=== PATIENT | male | born 1995 | race Caucasian/White ===

== ENCOUNTER 2021-02-18 01:18 | Outpatient (CLI) | payer SELFPAY | END 2021-02-18 01:19 | disposition EMS.NT | LOC: EMS 01:18 | DX: R00.2 Palpitations (principal); R00.0 Tachycardia, unspecified ==

== ENCOUNTER 2022-09-23 14:27 | Emergency (ER) | payer OTHER ==
[2022-09-23 14:55] VITALS: BP 124/78
--- NOTE | 2022-09-23 15:32 | ED Physician Documentation ---
PD HPI WOUND RECHECK - Stated complaint Stated Complaint: STITCHES REMOVAL - Chief complaint Chief Complaint: Wound - Histroy obtained from History obtained from: Patient - History of Present Illness Location: Other (right wrist) Pain level max: 0 Pain level now: 0 Associated symptoms: No: Fever, Redness, Swelling, Drainage - Additional information Additional information: Patient is a 27-year-old male who states that [place]. One suture was placed. He is here for removal. He is asymptomatic. Review of Systems Constitutional: denies: Fever PD PAST MEDICAL HISTORY - Past Medical History Past Medical History: No - Past Surgical History Past Surgical History: No - Allergies Allergies/Adverse Reactions: Allergies Allergy/AdvReac Type Severity Reaction Status Date / Time No Known Drug Allergies Allergy Verified 09/23/22 14:55 - Family History Family history: reports: Non contributory - Immunizations Immunizations are current?: Yes Immunizations: TDAP current <10years PD ED PE NORMAL - Vitals Vital signs reviewed: Yes - General General: Alert and oriented X 3, No acute distress - Derm Derm: Warm and dry - Extremities Extremities: Other (Well-healed laceration to the right wrist, volar aspect. [address] No signs of infection) - Neuro Neuro: Alert and oriented X 3 Results - Vitals Vitals: Vital Signs - 24 hr 09/23/22 14:53 Temperature 36.0 C L Heart Rate 64 Respiratory 16 Rate Blood Pressure 124/78 O2 Saturation 98 Oxygen O2 Source Room air Procedures - Suture/staple Removal (location) Right wrist Suture/staple removal: # sutures (1), No complications PD MEDICAL DECISION MAKING - ED course Complexity details: considered differential, d/w patient ED course: Suture removed. No complications. No signs of infection. This document was made in part using voice recognition software. While efforts are made to proofread this document, sound alike and grammatical errors may occur. Departure - Departure Disposition: 01 Home, Self Care Clinical Impression: Visit for suture removal Condition: Good Instructions: ED Wound Check Sutr Remove No Infec Follow-Up: your,doctor as needed [Other] Comments: Your suture was removed. Return if you notice redness, swelling or drainage from the wound.
== END 2022-09-23 15:33 | disposition home or self-care (01) ==
LOC: ED 14:27
DX: S61.511D Laceration without foreign body of right wrist, subsequent encounter (principal); W45.8XXD Other foreign body or object entering through skin, subsequent encounter
CPT/HCPCS: 99281

== ENCOUNTER 2023-06-06 07:15 | Outpatient (CLI) | payer OTHER ==
[2023-06-06 12:45] LABS: BILIRUBIN,URINE NEGATIVE (NEGATIVE); GLUCOSE, URINE (UA) NEGATIVE (NEGATIVE); KETONES,URINE (UA) NEGATIVE (NEGATIVE); LEUKOCYTE ESTERASE, URINE TRACE (NEGATIVE); NITRITE,URINE NEGATIVE (NEGATIVE); OCCULT BLOOD,URINE NEGATIVE (NEGATIVE); PROTEIN,URINE NEGATIVE (NEGATIVE); UROBILINOGEN,URINE 0.2 (NORMAL) E.U./dL (NORMAL)
[2023-06-06 12:48] LABS: CLARITY,URINE CLEAR (CLEAR)
[2023-06-06 12:57] LABS: BACTERIA,URINE Rare /HPF (None Seen); RBC,URINE 0-5 /HPF (0-5); SQUAMOUS EPITHELIAL CELL,UR RARE Squamous (<= Few); WBC,URINE 0-3 /HPF (0-3)
[2023-06-06 19:05] LABS: CHLAMYDIA TRACHOMATIS DNA NEGATIVE (NEGATIVE); NEISSERIA GONORRHOEAE DNA NEGATIVE (NEGATIVE); TRICHOMONAS VAGINALIS DNA NEGATIVE (NEGATIVE)
== END 2023-06-06 07:30 | disposition home or self-care (01) ==
LOC: LAB.N 07:15
PROVIDERS: ATTEND Emergency Medicine
DX: N34.1 Nonspecific urethritis (principal)
CPT/HCPCS: 81001; 87086; 87491; 87591; 87661

== ENCOUNTER 2023-06-27 19:23 | Emergency (ER) | payer OTHER ==
[2023-06-27 19:28] VITALS: BP 130/88; O2SAT 96
--- NOTE | 2023-06-27 19:41 | ED Physician Documentation ---
PD HPI UPPER EXT INJURY - Stated complaint Stated Complaint: RT HAND LAC - Chief complaint Chief Complaint: Laceration - History obtained from History obtained from: Patient - Additonal information Additional information: Ambidextrous 27-year-old gentleman who is active duty in the [employer] and up-to-date on tetanus was skipping rocks that he is landing just prior to arrival and the rock was sharp and he cut the tip of his right index finger. PD PAST MEDICAL HISTORY - Past Surgical History Past Surgical History: No - Allergies Allergies/Adverse Reactions: Allergies Allergy/AdvReac Type Severity Reaction Status Date / Time No Known Drug Allergies Allergy Verified 06/27/23 19:25 - Social History Does the pt smoke?: No Smoking Status: Never smoker - Immunizations Immunizations are current?: Yes Immunizations: TDAP current <10years PD ED PE NORMAL - Vitals Vital signs reviewed: Yes - General General: Alert and oriented X 3, No acute distress - Extremities Extremities: Other (There is a very shallow laceration of the pulp of the right index finger with some retained sand) - Neuro Neuro: Alert and oriented X 3, Normal speech Results - Vitals Vitals: Vital Signs - 24 hr 06/27/23 19:25 Temperature 36.5 C Heart Rate 75 Respiratory 14 Rate Blood Pressure 130/88 H O2 Saturation 96 Oxygen O2 Source Room air Procedures - Laceration (location) Right index finger Length in cm: 1 Wound type: Linear, Superficial Wound preparation: Hibiclens, Irrigated copiously NS, Debrided moderately (A couple pieces of sand were debrided with pickups) Skin layer closure: Dermabond Other: Tetanus UTD Departure - Departure Disposition: 01 Home, Self Care Clinical Impression: Laceration of right index finger Condition: Good Record reviewed to determine appropriate education?: Yes Instructions: ED Laceration Ext Skin Glue Forms: Activity restrictions
== END 2023-06-27 20:21 | disposition home or self-care (01) ==
LOC: ED 19:23
DX: S61.210A Laceration without foreign body of right index finger without damage to nail, initial encounter (principal); W26.9XXA Contact with unspecified sharp object(s), initial encounter
CPT/HCPCS: 12001; 99281